=== PATIENT | male | born 1970 | race Caucasian/White ===

== ENCOUNTER 2016-06-17 08:19 | Emergency (ER) | payer OTHER ==
[~2016-06-17] VITALS: Ht 172.7 cm; Wt 58.8 kg
[~2016-06-17 08:19] MED LIST: AMOXICILLIN500 MG PO; BUSPAR15 MG PO; BUTALB-APAP-CA1 EACH PO; CLOPIDOGREL75 MG PO; CYCLOBENZAPRINE10 MG PO; DESYREL100 MG PO; DIAZEPAM5 MG PO; METFORMIN HCL500 MG PO; MYFORTIC180 MG PO; NORCO 5/3251 TABLET PO; PERCOCET 5/31 TABLET PO; PLAVIX75 MG PO; RAPAMUNE1 MG PO; SERTRALINE HCL50 MG PO; SIMVASTATIN40 MG PO; SKELAXIN800 MG PO; SUMATRIPTAN SUC50 MG PO; TRAZODONE HCL50 MG PO; ULTRAM50 MG PO; VALIUM5 MG PO; ZOFRAN ODT4 MG PO; ZOFRAN ODT8 MG PO
[2016-06-17 09:26] LABS: HEMATOCRIT 43.6 % (38.0-50.0); MCH 27.6 PG (29.0-34.0); MCHC 33.5 G/DL (30.0-36.0); MCV 82.4 FL (86-99); MEAN PLAT.VOLUME 8.8 uM^3 (9.0-12.4); PLATELET COUNT 252 K/uL (156-360); RBC DIS.WIDTH-SD 42.1 % (39-53); RED BLOOD COUNT 5.29 M/uL (4.00-5.50); WHITE BLOOD COUNT 6.1 K/uL (4.1-10.2)
[2016-06-17 09:42] LABS: CHLORIDE 101 mEq/L (99-109); SODIUM 134 mEq/L (136-147)
[2016-06-17 09:45] LABS: GLUCOSE 183 mg/dL (70-99)
[2016-06-17 09:46] LABS: ANION GAP 8 MEQ/L (2-14); TOTAL BILIRUBIN 0.3 mg/dL (0.0-1.0)
[2016-06-17 09:48] LABS: ALKALINE PHOSPHATASE 86 IU/L (3-129); GFR ESTIMATE (CALCULATED) > 59 mL/min/
[2016-06-17 09:49] LABS: UREA NITROGEN (BUN) 14 mg/dL (9-23)
[2016-06-17 09:58] LABS: ADD MIUA? YES; BILIRUBIN NEGATIVE; BLOOD NEGATIVE; COLOR YELLOW ((YELLOW)); GLUCOSE (STRIP) NEGATIVE; KETONES NEGATIVE; LEUKOCYTES NEGATIVE; NITRITE NEGATIVE; PROTEIN (STRIP) 100; SPECIFIC GRAVITY 1.026 (1.000-1.030)
[2016-06-17 10:05] LABS: BACTERIA NONE SEEN /HPF; EPITHELIAL CELLS RARE /HPF; GRANULAR CASTS 0-5 /LPF; HYALINE CASTS 0-5 /LPF; MUCUS TRACE /LPF; RED BLOOD CELLS 0-5 /HPF (0-5); UCUL ADDED? NO; WHITE BLOOD CELLS 0-5 /HPF (0-5)
[2016-06-17] MEDS ORDERED: BENTYL20 MG PO (11:01)
[2016-06-17] MEDS ORDERED: COLACE100 MG PO (11:01)
[2016-06-17 11:24] VITALS: BP 112/86
== END 2016-06-17 11:24 | disposition home or self-care (01) ==
LOC: EME 08:19 → EXP 08:19
PROVIDERS: Nurse Practitioner Family
DX: K59.00 Constipation, unspecified (principal); Z94.0 Kidney transplant status; I10 Essential (primary) hypertension; Z79.02 Long term (current) use of antithrombotics/antiplatelets; Z79.84 Long term (current) use of oral hypoglycemic drugs; F17.200 Nicotine dependence, unspecified, uncomplicated
CPT/HCPCS: 74020; 80053; 81003; 85027; 99281; 99283

== ENCOUNTER 2016-08-15 15:11 | Emergency (ER) | payer OTHER ==
[~2016-08-15] VITALS: Ht 172.7 cm; Wt 57.0 kg
[~2016-08-15 15:11] MED LIST changes: +BENTYL20 MG PO; +COLACE100 MG PO
[2016-08-15 16:22] LABS: HEMATOCRIT 46.6 % (38.0-50.0); MCH 26.8 PG (29.0-34.0); MCHC 33.3 G/DL (30.0-36.0); MCV 80.6 FL (86-99); MEAN PLAT.VOLUME 9.1 uM^3 (9.0-12.4); PLATELET COUNT 201 K/uL (156-360); RBC DIS.WIDTH-CV 13.7 % (11.8-14.6); RBC DIS.WIDTH-SD 39.7 % (39-53); RED BLOOD COUNT 5.78 M/uL (4.00-5.50); WHITE BLOOD COUNT 8.9 K/uL (4.1-10.2)
[2016-08-15 16:37] LABS: CHLORIDE 103 mEq/L (99-109); POTASSIUM 3.9 mEq/L (3.7-5.4); SODIUM 133 mEq/L (136-147)
[2016-08-15 16:39] LABS: GLUCOSE 141 mg/dL (70-99)
[2016-08-15 16:40] LABS: ANION GAP 8 MEQ/L (2-14)
[2016-08-15 16:42] LABS: ADD MIUA? YES; BILIRUBIN NEGATIVE; BLOOD NEGATIVE; COLOR YELLOW ((YELLOW)); GLUCOSE (STRIP) NEGATIVE; KETONES 5; LEUKOCYTES NEGATIVE; NITRITE NEGATIVE; PROTEIN (STRIP) >=500; SPECIFIC GRAVITY 1.022 (1.000-1.030); UROBILINOGEN 0.2 MG/DL (0.2-1.0)
[2016-08-15 16:43] LABS: GFR ESTIMATE (CALCULATED) > 59 mL/min/
[2016-08-15 16:44] LABS: UREA NITROGEN (BUN) 13 mg/dL (9-23)
[2016-08-15 16:45] LABS: BACTERIA RARE /HPF; EPITHELIAL CELLS NONE SEEN /HPF; MUCUS NONE SEEN /LPF; RED BLOOD CELLS 0-5 /HPF (0-5); UCUL ADDED? NO; WHITE BLOOD CELLS 0-5 /HPF (0-5)
[2016-08-15 17:03] LABS: TOTAL BILIRUBIN 0.6 mg/dL (0.0-1.0)
[2016-08-15 17:04] LABS: ALKALINE PHOSPHATASE 93 IU/L (3-129)
[2016-08-15 17:07] LABS: DIRECT BILIRUBIN 0.2 mg/dL (0.0-0.3)
[2016-08-15 17:08] LABS: LIPASE 15 U/L (1.0-51.0)
[2016-08-15] MEDS ORDERED: FLAGYL500 MG PO (20:40)
[2016-08-15] MEDS ORDERED: CIPRO500 MG PO (20:40)
[2016-08-15 21:11] VITALS: BP 140/85
== END 2016-08-15 21:12 | disposition home or self-care (01) ==
LOC: EME 15:11
DX: K57.32 Diverticulitis of large intestine without perforation or abscess without bleeding (principal); I12.9 Hypertensive chronic kidney disease with stage 1 through stage 4 chronic kidney disease, or unspecified chronic kidney disease; N18.9 Chronic kidney disease, unspecified; Z94.0 Kidney transplant status; F32.9 Major depressive disorder, single episode, unspecified; F41.9 Anxiety disorder, unspecified; Z86.73 Personal history of transient ischemic attack (TIA), and cerebral infarction without residual deficits; Z87.891 Personal history of nicotine dependence
CPT/HCPCS: 74176; 76776; 80048; 80076; 81003; 83605; 83690; 85027; 87040; 99281; 99285; J7030

== ENCOUNTER 2016-10-14 08:43 | Emergency (ER) | payer OTHER ==
[~2016-10-14] VITALS: Ht 172.7 cm; Wt 55.5 kg
[~2016-10-14 08:43] MED LIST changes: +CIPRO500 MG PO; +FLAGYL500 MG PO
[2016-10-14 10:13] LABS: HEMATOCRIT 46.3 % (38.0-50.0); MCH 26.7 PG (29.0-34.0); MCHC 33.3 G/DL (30.0-36.0); MCV 80.4 FL (86-99); PLATELET COUNT 190 K/uL (156-360); RBC DIS.WIDTH-CV 14.5 % (11.8-14.6); RBC DIS.WIDTH-SD 41.7 % (39-53); RED BLOOD COUNT 5.76 M/uL (4.00-5.50); WHITE BLOOD COUNT 11.7 K/uL (4.1-10.2)
[2016-10-14 10:24] LABS: CHLORIDE 102 mEq/L (99-109); POTASSIUM 4.1 mEq/L (3.7-5.4); SODIUM 137 mEq/L (136-147)
[2016-10-14 10:26] LABS: GLUCOSE 126 mg/dL (70-99)
[2016-10-14 10:27] LABS: ANION GAP 10 MEQ/L (2-14)
[2016-10-14 10:28] LABS: TOTAL BILIRUBIN 0.5 mg/dL (0.0-1.0)
[2016-10-14 10:29] LABS: ADD MIUA? YES; BILIRUBIN NEGATIVE; BLOOD NEGATIVE; COLOR YELLOW ((YELLOW)); GLUCOSE (STRIP) NEGATIVE; KETONES NEGATIVE; LEUKOCYTES NEGATIVE; NITRITE NEGATIVE; PROTEIN (STRIP) >=500; SPECIFIC GRAVITY 1.032 (1.000-1.030); UROBILINOGEN 0.2 MG/DL (0.2-1.0)
[2016-10-14 10:30] LABS: ALKALINE PHOSPHATASE 143 IU/L (3-129); GFR ESTIMATE (CALCULATED) > 59 mL/min/
[2016-10-14 10:31] LABS: UREA NITROGEN (BUN) 15 mg/dL (9-23)
[2016-10-14 10:33] LABS: LIPASE 15 U/L (1.0-51.0)
[2016-10-14 10:41] LABS: BACTERIA NONE SEEN /HPF; EPITHELIAL CELLS RARE /HPF; HYALINE CASTS 0-5 /LPF; MUCUS TRACE /LPF; RED BLOOD CELLS 0-5 /HPF (0-5); UCUL ADDED? NO; WHITE BLOOD CELLS 0-5 /HPF (0-5)
[2016-10-14] MEDS ORDERED: FLEET ENEMA-AD118 ML PR (11:28)
[2016-10-14] MEDS ORDERED: MIRALAX17 GM PO (11:28)
[2016-10-14 11:56] VITALS: BP 135/88
== END 2016-10-14 11:58 | disposition home or self-care (01) ==
LOC: EME 08:43
PROVIDERS: Emergency Medicine
DX: R14.0 Abdominal distension (gaseous) (principal); Z94.0 Kidney transplant status; Z86.73 Personal history of transient ischemic attack (TIA), and cerebral infarction without residual deficits; N18.9 Chronic kidney disease, unspecified; I12.9 Hypertensive chronic kidney disease with stage 1 through stage 4 chronic kidney disease, or unspecified chronic kidney disease; Z79.84 Long term (current) use of oral hypoglycemic drugs; Z79.02 Long term (current) use of antithrombotics/antiplatelets; F17.200 Nicotine dependence, unspecified, uncomplicated
CPT/HCPCS: 71020; 74176; 80053; 81003; 83690; 85027; 99281; 99284; J7030

== ENCOUNTER 2016-12-20 04:04 | Emergency (ER) | payer OTHER ==
[~2016-12-20] VITALS: Ht 172.7 cm; Wt 59.3 kg
[~2016-12-20 04:04] MED LIST changes: +FLEET ENEMA-AD118 ML PR; +MIRALAX17 GM PO
[2016-12-20 04:54] LABS: BASOPHIL COUNT 0.1 K/uL (0-0.1); EOSINOPHIL (%) 1.4 % (0-5); EOSINOPHIL COUNT 0.1 K/uL (0-0.3); HEMATOCRIT 40.3 % (38.0-50.0); IMMATURE GRANULOCYTE (%) 0.3 % (0.0-0.7); INSTRUMENT ABS NEUTROPHIL CT 6.2 K/uL; LYMPHOCYTE COUNT 1.5 K/uL (1.0-2.8); MCH 27.4 PG (29.0-34.0); MCV 83.1 FL (86-99); MEAN PLAT.VOLUME 9.1 uM^3 (9.0-12.4); MONOCYTE (%) 8.2 % (3-12); MONOCYTE COUNT 0.7 K/uL (0-0.8); NEUTROPHIL (%) 71.9 % (45-76); NEUTROPHIL COUNT 6.2 K/uL (1.8-6.4); PLATELET COUNT 218 K/uL (156-360); RBC DIS.WIDTH-CV 15.9 % (11.8-14.6); RBC DIS.WIDTH-SD 47.9 % (39-53); RED BLOOD COUNT 4.85 M/uL (4.00-5.50); WHITE BLOOD COUNT 8.6 K/uL (4.1-10.2)
[2016-12-20 05:05] LABS: CHLORIDE 105 mEq/L (99-109); POTASSIUM 3.6 mEq/L (3.7-5.4); SODIUM 138 mEq/L (136-147)
[2016-12-20 05:07] LABS: GLUCOSE 120 mg/dL (70-99)
[2016-12-20 05:09] LABS: ANION GAP 10 MEQ/L (2-14); TOTAL BILIRUBIN 0.3 mg/dL (0.0-1.0)
[2016-12-20 05:11] LABS: ALKALINE PHOSPHATASE 69 IU/L (3-129); GFR ESTIMATE (CALCULATED) > 59 mL/min/
[2016-12-20 05:12] LABS: UREA NITROGEN (BUN) 18 mg/dL (9-23)
[2016-12-20 05:15] LABS: LIPASE 26 U/L (1.0-51.0)
[2016-12-20] MEDS ORDERED: MIRALAX17 GM PO (06:24)
[2016-12-20] MEDS ORDERED: FLEET ENEMA-AD118 ML PR (06:24)
[2016-12-20 06:43] VITALS: BP 139/101
== END 2016-12-20 06:44 | disposition home or self-care (01) ==
LOC: EME → EDBD 04:04 → EME 06:44
PROVIDERS: Emergency Medicine
DX: R10.11 Right upper quadrant pain (principal); K59.09 Other constipation; I12.9 Hypertensive chronic kidney disease with stage 1 through stage 4 chronic kidney disease, or unspecified chronic kidney disease; N18.9 Chronic kidney disease, unspecified; K80.20 Calculus of gallbladder without cholecystitis without obstruction; Z94.0 Kidney transplant status; E11.22 Type 2 diabetes mellitus with diabetic chronic kidney disease; Z79.84 Long term (current) use of oral hypoglycemic drugs; E78.5 Hyperlipidemia, unspecified; F32.9 Major depressive disorder, single episode, unspecified; F41.9 Anxiety disorder, unspecified; Z86.73 Personal history of transient ischemic attack (TIA), and cerebral infarction without residual deficits; Z86.74 Personal history of sudden cardiac arrest; F17.200 Nicotine dependence, unspecified, uncomplicated
CPT/HCPCS: 74176; 76705; 80053; 81003; 83605; 83690; 85025; 99281; 99285; J2405; J3010; J7030

== ENCOUNTER 2017-01-22 13:17 | Emergency (ER) | payer OTHER ==
[~2017-01-22] VITALS: Ht 172.7 cm; Wt 63.2 kg
[2017-01-22 14:40] LABS: BASOPHIL COUNT 0.1 K/uL (0-0.1); EOSINOPHIL (%) 0.5 % (0-5); HEMATOCRIT 46.1 % (38.0-50.0); IMMATURE GRANULOCYTE (%) 0.3 % (0.0-0.7); INSTRUMENT ABS NEUTROPHIL CT 5.2 K/uL; LYMPHOCYTE COUNT 1.9 K/uL (1.0-2.8); MCH 27.9 PG (29.0-34.0); MCHC 34.1 G/DL (30.0-36.0); MEAN PLAT.VOLUME 9.3 uM^3 (9.0-12.4); MONOCYTE (%) 8.4 % (3-12); MONOCYTE COUNT 0.7 K/uL (0-0.8); NEUTROPHIL (%) 65.9 % (45-76); NEUTROPHIL COUNT 5.2 K/uL (1.8-6.4); PLATELET COUNT 200 K/uL (156-360); RBC DIS.WIDTH-SD 41.1 % (39-53); RED BLOOD COUNT 5.62 M/uL (4.00-5.50); WHITE BLOOD COUNT 7.9 K/uL (4.1-10.2)
[2017-01-22 14:53] LABS: CHLORIDE 109 mEq/L (99-109); POTASSIUM 3.7 mEq/L (3.7-5.4); SODIUM 140 mEq/L (136-147)
[2017-01-22 14:56] LABS: GLUCOSE 88 mg/dL (70-99)
[2017-01-22 14:57] LABS: ANION GAP 9 MEQ/L (2-14); TOTAL BILIRUBIN 0.3 mg/dL (0.0-1.0)
[2017-01-22 14:59] LABS: ALKALINE PHOSPHATASE 70 IU/L (3-129); GFR ESTIMATE (CALCULATED) > 59 mL/min/
[2017-01-22 15:00] LABS: UREA NITROGEN (BUN) 15 mg/dL (9-23)
[2017-01-22 15:03] LABS: LIPASE 23 U/L (1.0-51.0)
[2017-01-22 15:14] LABS: ADD MIUA? YES; BILIRUBIN NEGATIVE; BLOOD SMALL; COLOR YELLOW ((YELLOW)); GLUCOSE (STRIP) NEGATIVE; KETONES NEGATIVE; LEUKOCYTES NEGATIVE; NITRITE NEGATIVE; PROTEIN (STRIP) >=500; UROBILINOGEN 0.2 MG/DL (0.2-1.0)
[2017-01-22 15:24] LABS: BACTERIA RARE /HPF; EPITHELIAL CELLS NONE SEEN /HPF; GRANULAR CASTS 0-5 /LPF; MUCUS TRACE /LPF; UCUL ADDED? NO; WHITE BLOOD CELLS 0-5 /HPF (0-5)
[2017-01-22] MEDS ORDERED: BENTYL10 MG PO (16:39)
[2017-01-22 16:53] VITALS: BP 127/79
== END 2017-01-22 16:55 | disposition home or self-care (01) ==
LOC: EME 13:17
PROVIDERS: Physician Assistant
DX: K80.20 Calculus of gallbladder without cholecystitis without obstruction (principal); I10 Essential (primary) hypertension; E78.5 Hyperlipidemia, unspecified; E11.9 Type 2 diabetes mellitus without complications; F41.9 Anxiety disorder, unspecified; F32.9 Major depressive disorder, single episode, unspecified; Z72.0 Tobacco use; Z94.0 Kidney transplant status; Z86.73 Personal history of transient ischemic attack (TIA), and cerebral infarction without residual deficits; Z86.74 Personal history of sudden cardiac arrest; Z79.84 Long term (current) use of oral hypoglycemic drugs
CPT/HCPCS: 76705; 80053; 81003; 83690; 85025; 99281; 99284

== ENCOUNTER 2017-02-02 06:13 | Day surgery (SDC) | payer OTHER ==
[~2017-02-02] VITALS: Ht 172.7 cm; Wt 58.9 kg
[~2017-02-02 06:13] MED LIST changes: +BENTYL10 MG PO; +CYANOCOBAL1000 MCG/2 IM; +ELIQUIS5 MG PO; -SIMVASTATIN40 MG PO; +TOPROL XL50 MG PO; +ZOCOR10 MG PO
[2017-02-02 06:47] LABS: POINT-OF-CARE METER ID UU14174212
[2017-02-02 07:11] VITALS: BP 171/93
[2017-02-02] MEDS ORDERED: COLACE100 MG PO (10:29)
[2017-02-02] MEDS ORDERED: PERCOCET 5/31 TABLET PO (10:29)
[2017-02-02 10:37] LABS: POINT-OF-CARE METER ID UU13113675
[2017-02-02 13:08] VITALS: BP 168/90
== END 2017-02-02 13:10 | disposition home or self-care (01) ==
LOC: SDC 06:13
PROVIDERS: Surgery
PROC: 0FT44ZZ Resection of Gallbladder, Percutaneous Endoscopic Approach (ICD-10-PCS; principal; 2017-02-02)
DX: K80.10 Calculus of gallbladder with chronic cholecystitis without obstruction (principal); D13.5 Benign neoplasm of extrahepatic bile ducts; I10 Essential (primary) hypertension; E11.21 Type 2 diabetes mellitus with diabetic nephropathy; E78.5 Hyperlipidemia, unspecified; F41.9 Anxiety disorder, unspecified; I48.91 Unspecified atrial fibrillation; Z94.0 Kidney transplant status; I25.2 Old myocardial infarction; F17.200 Nicotine dependence, unspecified, uncomplicated; Z86.73 Personal history of transient ischemic attack (TIA), and cerebral infarction without residual deficits; Z95.0 Presence of cardiac pacemaker; Z79.84 Long term (current) use of oral hypoglycemic drugs
CPT/HCPCS: 82948; 88304; J0330; J1100; J2250; J2405; J2710; J2765; J3010; S0074